=== PATIENT | female | born 1955 | race Caucasian/White ===

== ENCOUNTER 2021-06-20 21:40 | Emergency (ER) | payer MEDICARE ==
--- NOTE | 2021-06-20 22:38 | EDM.PDOC ---
ED HPI GENERAL MEDICAL PROBLEM - General Chief Complaint: Lower Extremity Injury/Pain Stated Complaint: R ANKLE INJURY Time Seen by Provider: 06/20/21 22:08 Source of Information: Reports: Patient History Limitations: Reports: No Limitations - History of Present Illness INITIAL COMMENTS - FREE TEXT/NARRATIVE: Pasha is a 65-year-old female presenting to the ED for evaluation of right ankle injury. Patient is camping in the area but is from near [place], [place]. She was stepping out of their camper when their dog thought that she was supposed to go as well and knocked the patient off the stairway exiting the camper causing her to invert her right ankle and foot. Patient went down to the ground but denies any other injuries. She has had significant pain with any lake ghtbearing since the fall that occurred around 1930 hrs. She denies any distal numbness or tingling. She does have pain with movement of the ankle over the lateral malleolus. There is significant swelling over the same region with bruising already noted. She has no tenderness of the foot per report. Right Ankle Pain Score (Numeric/FACES): 6 - Related Data Allergies Allergy/AdvReac Type Severity Reaction Status Date / Time No Known Allergies Allergy Verified 06/20/21 22:15 Past Medical History HEENT History: Reports: Impaired Vision Cardiovascular History: Reports: High Cholesterol, Hypertension Gastrointestinal History: Reports: [employer] History: Reports: Musculoskeletal History: Reports: Fracture Other Musculoskeletal History: 1995 - left leg fracture, bone graft Psychiatric History: Reports: Anxiety Endocrine/Metabolic History: Reports: Diabetes, Type II, Hyperthyroidism - Infectious Disease History Infectious Disease History: Reports: Chicken Pox, Shingles - Past Surgical History HEENT Surgical History: Reports: Cataract Surgery Female Surgical History: Reports: Hysterectomy Social & Family History - Tobacco Use Tobacco Use Status *Q: Never Tobacco User - Caffeine Use Caffeine Use: Reports: None - Recreational Drug Use Recreational Drug Use: No Review of Systems - Review of Systems Review Of Systems: See Below Constitutional: Reports: No Symptoms Musculoskeletal: Reports: Joint Pain (Right lateral ankle pain), Joint Swelling (Right lateral ankle swelling) Skin: Reports: Bruising (Lateral right ankle) Neurological: Reports: No Symptoms ED EXAM, GENERAL - Physical Exam Exam: See Below Exam Limited By: No Limitations General Appearance: Alert, No Apparent Distress Cardiovascular: Normal Peripheral Pulses Extremities: Normal Capillary Refill, Joint Swelling (Lateral right ankle), Limited Range of Motion (Limited flexion, extension, and inversion with the right ankle. Significant tenderness to palpation over the distal fibula.) Neurological: Alert, Oriented, Normal Cognition, No Motor/Sensory Deficits Skin Exam: Ecchymosis (Lateral right ankle) Course - Vital Signs Last Recorded V/S: Last Vital Signs Temp 36.4 C 06/20/21 22:14 Pulse 92 06/20/21 22:14 Resp 16 06/20/21 22:14 BP 183/87 H 06/20/21 22:14 Pulse Ox 96 06/20/21 22:14 - Orders/Labs/Meds Orders: Active Orders 24 hr Category Date Time Status Ankle Min 3V Rt [CR] Stat Exams 06/20/21 21:59 Taken - Radiology Interpretation Free Text/Narrative:: I reviewed the three-view x-ray of the right ankle showing a nondisplaced fracture of the distal fibula. There is overlying significant soft tissue swelling. - Re-Assessments/Exams Free Text/Narrative Re-Assessment/Exam: 06/20/21 22:36 appears that the patient has a nondisplaced fracture of the distal fibula on the three-view x-ray of the right ankle. My plan is to put her in a walking boot nonweightbearing for the first 7 days with ambulation with crutches. The patient is instructed to ice and elevate the right lower extremity. Crutch walking with nonweightbearing for 7 days and then advance as tolerated. I advised him to follow-up with her local orthopedist when they return home tomorrow. We will put her on hydrocodone for pain control. Patient was instructed on indications to return to the ED. All questions were answered and she was suitable for discharge in satisfactory condition. Departure - Departure Time of Disposition: 22:41 Disposition: Home, Self-Care 01 Clinical Impression: Nondisplaced fracture of distal end of fibula - Discharge Information Instructions: Nondisplaced Fibular Ankle Fracture Treated With Immobilization, Adult Referrals: [facility] [employer] 3RD SHIFT [Other] Care Plan Goals: I recommend ice, elevation, and rest. No weightbearing on the ankle for the next 7 days or until you see your local orthopedist. Sepsis Event Note (ED) - Evaluation Sepsis Screening Result: No Definite Risk - Focused Exam Vital Signs: Vital Signs Temp Pulse Resp BP Pulse Ox 06/20/21 22:14 36.4 C 92 16 183/87 H 96 06/20/21 22:03 36.4 C 92 16 183/87 H 96 - Problem List & Annotations (1) Nondisplaced fracture of distal end of fibula SNOMED Code(s): 302564867 Code(s): S82.839A - OTH FRACTURE OF UPPER AND LOWER END OF UNSP FIBULA, INIT Status: Acute Priority: Medium Current Visit: Yes - Problem List Review Problem List Initiated/Reviewed/Updated: Yes - My Orders Last 24 Hours: My Active Orders 06/20/21 21:59 Ankle Min 3V Rt [CR] Stat - Assessment/Plan Last 24 Hours: My Active Orders 06/20/21 21:59 Ankle Min 3V Rt [CR] Stat
--- NOTE | 2021-06-20 23:11 | CRLCR ---
For Patients: As a result of the Century Cures Act, medical imaging exams and procedure reports are released immediately into your electronic medical record. You may view this report before your referring provider. If you have questions, please contact your health care provider. INDICATION: Lateral ankle pain and swelling TECHNIQUE: Ankle radiograph 3 views right COMPARISON: None FINDINGS: Bone: Comminuted fracture of the calcaneus is noted. Joint: The ankle mortise joint and the visualized hindfoot joints are unremarkable in appearance. No significant ankle effusion is seen. Soft tissue: Moderate diffuse soft tissue swelling noted. The [place] fat pad and the Achilles` tendon is normal in appearance. No radiopaque foreign bodies are seen. IMPRESSION: 1. Comminuted fracture of the calcaneus is noted. Dictated by: Madhav Doshi MD @ 06/20/2021 23:08:46 (Electronically Signed)
== END 2021-06-20 23:16 | disposition home or self-care (01) ==
LOC: JP.ED 21:40
DX: S82.831A Other fracture of upper and lower end of right fibula, initial encounter for closed fracture (principal); S92.001A Unspecified fracture of right calcaneus, initial encounter for closed fracture; I10 Essential (primary) hypertension; E78.00 Pure hypercholesterolemia, unspecified; K21.9 Gastro-esophageal reflux disease without esophagitis; E11.9 Type 2 diabetes mellitus without complications; F41.9 Anxiety disorder, unspecified; E05.90 Thyrotoxicosis, unspecified without thyrotoxic crisis or storm; Z90.710 Acquired absence of both cervix and uterus; W54.1XXA Struck by dog, initial encounter
CPT/HCPCS: 73610-RT; 99283-25